=== PATIENT | male | born 1965 | race Caucasian/White ===

== ENCOUNTER 2018-09-24 16:09 | Emergency (ER) | payer MEDICAID ==
--- NOTE | 2018-09-24 17:04 | EDPHY ---
H & P Stated Complaint: says splinter L 2nd finger, 3 days ago swelling/pain started, blurry visio Time Seen by Provider: 09/24/18 17:03 HPI/ROS: HPI: This is a 53-year-old male who presents with Chief Complaint: says splinter L 2nd finger, 3 days ago swelling/pain started, blurry vision Location: Left index finger Quality: Injury/foreign body Duration: 6 days ago Signs and Symptoms: No bleeding, no radiation, no numbness, no weakness, no tingling, no incontinence, no decreased range of motion, + swelling, + pain, no fever Timing: Worsening Severity: [id number] Context: Patient is homeless, history of diabetes type 2 mellitus, presents with complaints of left index finger injury 6 days ago. He reports that he is working with an old piece of wood and a piece of the wood went into his finger near the PIP joint. He pulled the piece of wood out. Since that time he has noted increased swelling and decreased range of motion with pain. He is not sure if there is still redness of the wood still stuck in his finger. He also reports that he has not been taking his metformin for over 1 year. Unsure of dose that he took in the past. He has been given resources [facility] before but has not followed up to establish care. Denies polyuria, polydipsia, dizziness. Reports tetanus is not up-to-date. Modifying Factors: None Comment: ROS: A comprehensive 10 system review of systems is otherwise negative aside from elements mentioned in the history of present illness. MEDICAL/SURGICAL/SOCIAL HISTORY: Medical history: Diabetes mellitus type 2. Surgical history: Denies Social history: Current every day smoker. Homeless. Denies drug use. CONSTITUTIONAL: Morbidly obese nontoxic-appearing middle-aged white male, awake and alert, no obvious distress HEENT: Atraumatic and normocephalic, PERRL, EOMI. Nares patent; no rhinorrhea; no nasal mucosal edema. Tympanic membranes clear. Oropharynx clear, no exudate and moist pink mucosa. Airway patent. No lymphadenopathy. No meningismus. Cardiovascular: Normal S1/S2, tachycardia, regular rhythm, without murmur rub or gallop. PULMONARY/CHEST: Symmetrical and nontender. Clear to auscultation bilaterally. Good air movement. No accessory muscle usage. ABDOMEN: Soft, nondistended, nontender, no rebound, no guarding, no peritoneal signs, no masses or organomegaly. No CVAT. EXTREMITIES: 2/2 radial pulses, head of strategy strength 5/5, no deformities, no clubbing , no cyanosis or edema. NEUROLOGICAL: no focal neuro deficits. GCS 15. SKIN: Warm and dry, no erythema. no rash. Good capillary refill. Source: Patient Exam Limitations: No limitations - Personal History Current Tetanus Diphtheria and Acellular Pertussis (TDAP): No - Medical/Surgical History Hx Asthma: No Hx Chronic Respiratory Disease: No Hx Diabetes: Yes Hx Cardiac Disease: No Hx Renal Disease: No Hx Cirrhosis: No Hx Alcoholism: No Hx HIV/AIDS: No Hx Splenectomy or Spleen Trauma: No Other PMH: dm2 - Social History Smoking Status: Current every day smoker Constitutional: Initial Vital Signs Temperature (C) 36.9 C 09/24/18 16:16 Heart Rate 112 H 09/24/18 16:16 Respiratory Rate 18 09/24/18 16:16 Blood Pressure 166/127 H 09/24/18 16:16 O2 Sat (%) 94 09/24/18 16:16 O2 Delivery Mode Room Air Allergies/Adverse Reactions: No Known Allergies Allergy (Unverified 09/24/18 16:22) Home Medications: Medication Instructions Recorded Cephalexin [Keflex (*)] 500 mg PO QID #28 cap 09/24/18 Medical Decision Making - Diagnostics Imaging Results: Imaging Impressions Finger X-Ray 09/24/18 17:12 Impression: 1. Soft tissue swelling and gas around the proximal phalanx left second digit suggestive of underlying soft tissue infection. 2. Calcification adjacent to the first digit proximal phalanx posterior lateral margin probably related to remote trauma. Procedures: Procedure: Abscess drainage. The patient's abscess was located on the left palmar aspect of his index finger at the PIP joint. I obtained verbal consent from the patient to drain the abscess who was informed about the possibility of bleeding and pain. The abscess was incised with#11 scalpel and 2 mL amount of purulent drainage was expressed. I irrigated the wound thoroughly. Xeroform, clean sterile dressing placed. The patient tolerated the procedure well. The procedure was performed by myself. Procedure: Splint placement. A left index finger aluminum finger splint was applied the Emergency Room software validation technician. After application of the splint I returned and re-examined the patient. The splint was adequately immobilizing the joint and distal to the splint the patient's circulation and sensation was intact. ED Course/Re-evaluation: Vital signs reviewed and show mild tachycardia. Tetanus booster ordered. Digital block performed and left finger x-ray ordered my read via bedside imaging shows no foreign body/fracture. + Soft tissue swelling and gas around the proximal phalanx left second digit suggestive of underlying soft tissue infection. Case management consult for medication assistance and establish primary care. Fingerstick by [id number]; patient understands that he is to [facility] to obtain his medication and further diabetes management Small finger superficial abscess I&D; Xeroform, clean sterile dressing and aluminum finger splint placed to immobilize. Abscess is very superficial and small in nature; no surrounding cellulitis; no signs of tenosynovitis. Given prescription for Keflex. Verbal and written wound care instructions provided. No signs of neurovascular compromise/tenting of skin/compartment syndrome/ extremities and joints examined above and below area of concern and are neurovascularly intact. This patient was seen under the supervision of my secondary supervising physician. I evaluated care for this patient independently. Discussed this patient with Dr. Lewis who did not see the patient. Differential Diagnosis: Differential diagnosis includes but is not limited to foreign body, cellulitis, abscess, tenosynovitis. - Data Points Laboratory Results: 09/24/18 17:25 POC Glucose 306 mg/dL H mg/dL (70-100) Medications Given: Discontinued Medications Cephalexin HCl (Keflex) 500 mg PO EDNOW ONE PRN Reason: Protocol Stop: 09/24/18 17:59 Last Admin: 09/24/18 18:07 Dose: 500 mg Diphtheria/Tetanus/Acell Pertussis (Boostrix) 0.5 ml IM .ONCE ONE Stop: 09/24/18 17:13 Last Admin: 09/24/18 17:18 Dose: 0.5 ml Point of Care Test Results: Chemistry 09/24/18 17:25 POC Glucose 306 mg/dL H mg/dL (70-100) Departure - Departure Disposition: Home, Routine, Self-Care Clinical Impression: Abscess of left index finger Type 2 diabetes mellitus Qualifiers: Diabetes mellitus intermediate card tender insulin use: without intermediate card tender use Diabetes mellitus complication status: without complication Qualified Code(s): E11.9 - Type 2 diabetes mellitus without complications Condition: Good Instructions: Abscess Incision and Drainage (DC), Type 2 Diabetes in the Older Adult (ED), Diabetes and Nutrition (ED) Additional Instructions: Keep the dressing splint/dry and in place for 2-3 days. After 2-3 days, you may remove the dressing splint/; wash the site daily with mild soap and water; then pat dry and cover with clean sterile dressing. Take Tylenol 650 mg every 4 hours and/or Ibuprofen 600 mg every 8 hours with food as needed for pain. Take antibiotic as indicated. Do not skip a dose. Follow up with the [facility] in 2-3 days for wound check and discuss management of diabetes including medications. Follow-Up: Please follow-up as noted above. Follow-up sooner if your condition worsens or if you develop any new problems. Call as soon as possible for an appointment. Be clear when you call for an appointment that this is an Emergency Department follow-up. Contact the Emergency Department if you have trouble arranging follow-up care. Our referrals are not based on your insurance network. When time allows, contact your insurance carrier to verify the referral physician is in your plan. If not, get a referral for an in-networks computer consultant. Referrals: [facility],. [Clinic] - 2-3 days without fail Prescriptions: Cephalexin [Keflex (*)] 500 mg PO QID #28 cap
[2018-09-24] MEDS ORDERED: TDAP ADULT 0.5 ML INJ (BOOSTRIX) IM ONE (17:12)
[2018-09-24] MEDS ORDERED: CEPHALEXIN 500 MG CAP PO ONE (17:58)
[2018-09-24 18:13] VITALS: BP 176/98
== END 2018-09-24 18:28 | disposition home or self-care (01) ==
PROC: 0P9 Upper Bones, Drainage (ICD-10-PCS; principal; 2018-09-24)
DX: L02.512 Cutaneous abscess of left hand (principal); E11.9 Type 2 diabetes mellitus without complications; Z23 Encounter for immunization
CPT/HCPCS: L3925